=== PATIENT | male | born 1965 | race Caucasian/White ===

== ENCOUNTER 2019-03-04 14:26 | Inpatient (IN) | payer OTHER ==
[~2019-03-04] VITALS: Ht 182.9 cm; Wt 95.3 kg
[2019-03-04 14:29] VITALS: BP 163/103
[2019-03-04 14:52] LABS: ABSOLUTE BASOPHILS 0.1 thou/uL (0.0-0.2); ABSOLUTE EOSINOPHILS 0.2 thou/uL (0.0-0.7); ABSOLUTE LYMPHOCYTES 3.6 thou/uL (0.8-5.3); ABSOLUTE MONOCYTES 0.5 thou/uL (0.0-1.2); ABSOLUTE NEUTROPHILS 3.3 thou/uL (1.6-8.1); BASOPHILS 1.1 %; EOSINOPHILS 2.9 %; HEMATOCRIT 46.4 % (42.0-52.0); HEMOGLOBIN 15.7 gm/dL (14.0-18.0); LYMPHOCYTES 46.3 %; MCHC 33.9 g/dL (28.0-37.0); MCV 91.4 fL (80.0-100.0); MONOCYTES 6.7 %; MPV 7.5 fl. (7.2-11.1); NUCLEATED RBCS 0 /100WBC; PLATELET COUNT* 322 thou/uL (150-400); RBC 5.08 mil/uL (4.50-6.00); RDW-CV 15.6 % (10.5-14.5); WBC 7.7 thou/uL (4.0-11.0)
[2019-03-04 15:00] LABS: APTT 30.3 Seconds (25.0-31.3); PROTIME 9.9 Seconds (9.20-11.50)
[2019-03-04 15:30] LABS: ANION GAP 13 mmol/L (7-16); BUN 11 mg/dL (7-18); CHLORIDE 115 mmol/L (98-107); CO2 18 mmol/L (21-32); CREATININE 0.7 mg/dL (0.6-1.3); GLUCOSE 106 mg/dL (70-99); SODIUM 146 mmol/L (136-145); TROPONIN-I LEVEL <0.06 ng/mL (<0.06)
[2019-03-04 15:33] LABS: ALBUMIN 2.4 g/dL (3.4-5.0); ALKALINE PHOSPHATASE 45 U/L (46-116); CK-MB MASS 1.5 ng/mL (<0.5-3.6); LIPASE 80 U/L (73-393); MAGNESIUM 1.1 mg/dL (1.8-2.4); NT-PRO BRAIN NAT PEPTIDE 1161 pg/mL (<300); SGOT 17 U/L (15-37); SGPT 23 U/L (30-65); TOTAL BILIRUBIN 0.1 mg/dL (<0.1-1.0)
[2019-03-04 15:35] LABS: POTASSIUM 2.6 mmol/L (3.5-5.1)
[2019-03-04 15:36] LABS: CALCIUM 5.6 mg/dL (8.5-10.1)
[2019-03-04 17:46] VITALS: BP 149/110
[2019-03-04 18:35] VITALS: BP 141/96
[2019-03-04 20:00] VITALS: BP 115/67
[2019-03-04 21:30] VITALS: BP 121/62
[2019-03-04 23:15] VITALS: BP 124/63
[2019-03-05 04:00] VITALS: BP 112/74
[2019-03-05 04:59] LABS: HEMATOCRIT 41.8 % (42.0-52.0); HEMOGLOBIN 14.1 gm/dL (14.0-18.0); MCH 30.8 pg (26.0-34.0); MCHC 33.6 g/dL (28.0-37.0); MCV 91.7 fL (80.0-100.0); MPV 7.9 fl. (7.2-11.1); RBC 4.56 mil/uL (4.50-6.00); RDW-CV 15.7 % (10.5-14.5); WBC 6.7 thou/uL (4.0-11.0)
[2019-03-05 05:39] LABS: MAGNESIUM 2.1 mg/dL (1.8-2.4)
[2019-03-05 05:47] LABS: CALCIUM 8.9 mg/dL (8.5-10.1); POTASSIUM 4.6 mmol/L (3.5-5.1)
[2019-03-05 08:00] VITALS: BP 123/79
[2019-03-05 12:00] VITALS: BP 138/78
--- NOTE | 2019-03-05 12:07 | EKG ---
[place] [address] ELECTROCARDIOGRAM REPORT Name: IVANIA KUMAR Room: [address] ADM IN .R.#: [id number] Admission: 03/04/19 Attend Phys: Oh Whitaker MD Discharge: Date of : 69 Report #: [id number] THIS REPORT FOR: //name// [facility] ED Test Date: 2019-03-04 Test Time: 14:30:10 Pat Name: IVANIA KUMAR Department: Room: 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
--- NOTE | 2019-03-05 12:09 | EKG ---
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[facility] : 1965 Requested By: Oh Whitaker Order Number: [id number] Reading MD: Michael Burton Measurements Intervals [place] Rate: 116 P: [place]: QRS: 267 QRSD: 153 T: 19 QT: 344 QTc: 478 Interpretive Statements Atrial flutter with predominant 2:1 AV block Nonspecific IVCD with LAD LVH by voltage Abnormal T, consider ischemia, anterior leads No previous ECG available for comparison Electronically Signed On 03-05-2019 12:09:41 CDT by Michael Burton [email or web address] <ELECTRONICALLY SIGNED> By: Michael Burton MD, [facility] 03/05/19 1209 0841 0841 Michael Burton MD, [facility] /EPI
[2019-03-05 16:00] VITALS: BP 129/85
[2019-03-05 20:05] VITALS: BP 132/69
[2019-03-06] VITALS (12 sets, daily range): BP systolic 101–132; BP diastolic 63–93
[2019-03-06 04:35] LABS: CALCIUM 8.4 mg/dL (8.5-10.1); CREATININE 1.1 mg/dL (0.6-1.3); MAGNESIUM 1.6 mg/dL (1.8-2.4)
--- NOTE | 2019-03-06 08:58 | CON ---
[address] [address] CONSULTATION Name: IVANIA KUMAR Room: [address] IN .R.#: [id number] Admission: 03/04/19 Attend Phys: Oh Whitaker MD Discharge: Date of : 69 Report #: [id number] THIS REPORT FOR: //name// CC: [facility] physician/PCP Oh Whitaker CARDIOLOGY CONSULTATION INDICATION: Atrial flutter with rapid ventricular response rate. HISTORY OF PRESENT ILLNESS: The patient is a very pleasant 53-year-old gentleman with a history of tricuspid arteriosus repair at age 14 with subsequent surgery at age 15. In 2015, he had an episode of atrial flutter. He reports a "heart attack" in 2017 in [place], although those records are not available. He presents with recurrent atrial flutter with rapid ventricular response rate. He is on no medications. PAST MEDICAL HISTORY: 1. Tricuspid valve repair x 2 as outlined above. 2. Hypertension. 3. Paroxysmal atrial flutter. ALLERGIES: None documented. CURRENT MEDICATIONS: None. SOCIAL HISTORY: The patient smokes a pack of cigarettes daily and drinks 2-3 beers daily. FAMILY HISTORY: Noncontributory. REVIEW OF SYSTEMS: On 14-point review of systems, he reports cough productive of clear sputum, palpitations, chest discomfort, dyspnea on exertion, near syncope, questionable blood in stool, blood in urine, seasonal allergies, depression, anxiety and glasses. Otherwise, 14-point review of systems is unremarkable. PHYSICAL EXAMINATION: VITAL SIGNS: Blood pressure 123/79, pulse is irregular and in the 90s to 120s. GENERAL: This is a pleasant, healthy appearing gentleman in no distress. Mood and affect appropriate. HEENT: The patient is wearing glasses. Extraocular muscles intact. Mucous membranes moist. CHEST: Reveals clear lung black[place] without wheezes, rales or rhonchi. CARDIOVASCULAR: Reveals no jugular venous distention or bruit. Irregularly irregular rhythm, slightly tachycardic without gallop or murmur. ABDOMEN: Reveals normal bowel sounds. The abdomen [place] [address] CONSULTATION Name: IVANIA KUMAR Room: [address] IN [facility]#: [id number] Admission: 03/04/19 Attend Phys: Oh Whitaker MD Discharge: Date of : 69 Report #: [id number] EXTREMITIES: Show no significant edema. Peripheral pulses 2+ and easily palpable. SKIN: Dry. LABORATORY DATA: A 12-lead EKG shows atrial flutter with variable conduction. IMPRESSION AND RECOMMENDATIONS: 1. Recurrent paroxysmal atrial flutter. We will start Multaq 400 b.i.d. We will start Eliquis 5 mg b.i.d. We will plan cardioversion in a.m. Echocardiogram will be ordered. 2. Hypertension. Blood pressure appears adequately controlled at this time. We will follow clinically. 3. History of tricuspid valve repair on 2 separate occasions. We will obtain echocardiogram during this hospitalization. 4. Cardiomyopathy- repeat echo at this time. Adjust medicines as tolerated. <ELECTRONICALLY SIGNED> By: Michael Burton MD, FACC 03/06/19 0858 1153 0446Michael Burton MD, FACC /nt
--- NOTE | 2019-03-06 12:34 | 2DMMODE ---
[place] [address] 2 D/M-MODE ECHOCARDIOGRAM Name: IVANIA KUMAR Room: [address] [place] [facility]#: [id number] Admission: 03/04/19 Attend Phys: Oh Whitaker, Discharge: Date of : 69 Date of Service: 03/06/19 1234 Report #: [id number] THIS REPORT FOR: //name// APPROVED REPORT Study performed: 03/06/2019 10:13:45 EXAM: Comprehensive 2D, Doppler, and color-flow Echocardiogram Patient Location: In-Patient Room #: 200 Status: routine BSA: 2.22 HR: 102 bpm BP: 119/65 mmHg Rhythm: Atrial Fibrillation Other Information Study Quality: Good Indications Atrial Fibrillation Tachycardia Chest Pain 2D Dimensions IVSd: 17.30 (7-11mm) LVOT Diam: 24.37 (18-24mm) LVDd: 51.28 mm PWd: 15.23 (7-11mm) Ascending Ao: 36.11 (22-36mm) LVDs: 39.40 (25-40mm) Volumes Left Atrial Volume (Systole) LA ESV Index: 46.60 mL/m2 Aortic Valve AoV Peak Yasir.: 1.11 m/s AO Peak Gr.: 4.89 mmHg LVOT Max P.28 mmHg AO Mean Gr.: 3.08 mmHg LVOT Mean P.38 mmHg LVOT Max V: 1.03 m/s AO V2 VTI: 17.50 cm LVOT Mean V: 0.70 m/s RON (VTI): 4.33 cm2 LVOT V1 VTI: 16.24 cm TDI Medial E' Yasir.: 0.13 m/s Lateral E' Yasir.: 0.14 m/[place] [address] 2 D/M-MODE ECHOCARDIOGRAM Name: IVANIA KUMAR Room: [address] IN [facility]#: [id number] Admission: 03/04/19 Attend Phys: Oh Whitaker, Discharge: Date of : 69 Date of Service: 03/06/19 1234 Report #: [id number] Pulmonary Valve PV Peak Yasir.: 0.91 m/s PV Peak Gr.: 3.34 mmHg Tricuspid Valve RAP Estimate: 5.00 mmHg TR Peak Gr.: 19.79 mmHg RVSP: 24.00 mmHg PA Pressure: 24.00 mmHg Left Ventricle The left ventricle is normal size. There is global hypokinesis of the left ventricle. Moderate concentric left ventricular hypertrophy. Left ventricular systolic function is moderately decreased. LVEF is 35-40%. This study is not technically sufficient to allow evaluation of the LV diastolic function due to atrial fibrillation. Right Ventricle The right ventricle is normal size. The right ventricular systolic function is normal. Atria Left atrium is moderately dilated. Right atrium is dilated. Aortic Valve The aortic valve is normal in structure. No aortic regurgitation is present. There is no aortic valvular stenosis. Mitral Valve The mitral valve is normal in structure. Trace mitral regurgitation. No evidence of mitral valve stenosis. Tricuspid Valve The tricuspid valve is normal in structure. Mild tricuspid regurgitation. No pulmonary hypertension. Pulmonic Valve The pulmonary valve is normal in structure. Trace pulmonic regurgitation. Great Vessels The aortic root is normal in size. IVC is normal in size and collapses >50% with inspiration. Pericardium There is no [place] [address] 2 D/M-MODE ECHOCARDIOGRAM Name: IVANIA KUMAR Room: [address] IN [facility].#: [id number] Admission: 03/04/19 Attend Phys: Oh Whitaker, Discharge: Date of : 69 Date of Service: 03/06/19 1234 Report #: [id number] <Conclusion> The left ventricle is normal size. Moderate concentric left ventricular hypertrophy. The left ventricle is normal size. Moderate concentric left ventricular hypertrophy. Left ventricular systolic function is moderately decreased. LVEF is 35-40%. This study is not technically sufficient to allow evaluation of the LV diastolic function due to atrial fibrillation. Left atrium is moderately dilated. Right atrium is dilated. Trace mitral regurgitation. Mild tricuspid regurgitation. No pulmonary hypertension. <ELECTRONICALLY SIGNED> By: Michael Burton MD, FACC 03/06/19 1234 1234 1234 Michael Burton MD, FACC /INF
--- NOTE | 2019-03-06 13:05 | EKG ---
[place] [address] ELECTROCARDIOGRAM REPORT Name: IVANIA KUMAR Room: [address] ADM IN M.R.#: [id number] Admission: 03/04/19 Attend Phys: Oh Whitaker MD Discharge: Date of : 69 Report #: [id number] THIS REPORT FOR: //name// 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
[2019-03-07] VITALS: BP 133/89
[2019-03-07 04:00] VITALS: BP 128/90
[2019-03-07 08:00] VITALS: BP 133/87
[2019-03-07] MEDS ORDERED: CARVEDILOL3.125 MG PO (12:47)
[2019-03-07] MEDS ORDERED: ELIQUIS5 MG PO (12:48)
[2019-03-07] MEDS ORDERED: MULTAQ 400 MG400 MG PO (12:49)
[2019-03-07] MEDS ORDERED: ENTRESTO 24 MG1 EACH PO (12:51)
[2019-03-07 12:55] VITALS: BP 135/85
[2019-03-07 13:08] VITALS: BP 135/85
== END 2019-03-07 14:10 | disposition home or self-care (01) | DRG 308 ==
LOC: M.ERS 14:26 → M.TBA-ER 15:55 → M.2W 15:55
PROVIDERS: Family Medicine; ADMIT Internal Medicine
PROC: 5A2204Z Restoration of Cardiac Rhythm, Single (ICD-10-PCS; principal; 2019-03-06)
DX: I48.91 Unspecified atrial fibrillation (principal); J96.91 Respiratory failure, unspecified with hypoxia; E44.1 Mild protein-calorie malnutrition; I48.92 Unspecified atrial flutter; I47.1 Supraventricular tachycardia; I42.9 Cardiomyopathy, unspecified; I10 Essential (primary) hypertension; I25.2 Old myocardial infarction; F17.210 Nicotine dependence, cigarettes, uncomplicated; I25.10 Atherosclerotic heart disease of native coronary artery without angina pectoris; I45.4 Nonspecific intraventricular block; E83.51 Hypocalcemia; E87.6 Hypokalemia; F10.10 Alcohol abuse, uncomplicated; Z68.28 Body mass index [BMI] 28.0-28.9, adult

== ENCOUNTER 2019-07-25 16:19 | Emergency (ER) | payer OTHER ==
[~2019-07-25] VITALS: Ht 190.5 cm; Wt 104.3 kg
[~2019-07-25 16:19] MED LIST: CARVEDILOL3.125 MG PO; ELIQUIS5 MG PO; ENTRESTO 24 MG1 EACH PO; MULTAQ 400 MG400 MG PO
[2019-07-25 17:27] LABS: ABSOLUTE EOSINOPHILS 0.2 thou/uL (0.0-0.7); ABSOLUTE LYMPHOCYTES 2.4 thou/uL (0.8-5.3); ABSOLUTE MONOCYTES 0.5 thou/uL (0.0-1.2); ABSOLUTE NEUTROPHILS 2.6 thou/uL (1.6-8.1); BASOPHILS 0.8 %; EOSINOPHILS 4.2 %; HEMATOCRIT 42.5 % (42.0-52.0); HEMOGLOBIN 14.1 gm/dL (14.0-18.0); LYMPHOCYTES 41.3 %; MCH 31.6 pg (26.0-34.0); MCHC 33.3 g/dL (28.0-37.0); MONOCYTES 8.5 %; MPV 7.3 fl. (7.2-11.1); NUCLEATED RBCS 0 /100WBC; PLATELET COUNT* 309 thou/uL (150-400); POLYS 45.2 %; RBC 4.47 mil/uL (4.50-6.00); RDW-CV 15.6 % (10.5-14.5); WBC 5.7 thou/uL (4.0-11.0)
[2019-07-25 17:51] LABS: ANION GAP 11 mmol/L (7-16); BUN 15 mg/dL (7-18); CALCIUM 8.2 mg/dL (8.5-10.1); CHLORIDE 107 mmol/L (98-107); CO2 24 mmol/L (21-32); CREATININE 0.9 mg/dL (0.6-1.3); GLUCOSE 100 mg/dL (70-99); POTASSIUM 3.9 mmol/L (3.5-5.1); SODIUM 142 mmol/L (136-145)
[2019-07-25 18:01] LABS: ALBUMIN 3.6 g/dL (3.4-5.0); ALKALINE PHOSPHATASE 81 U/L (46-116); LIPASE 110 U/L (73-393); NT-PRO BRAIN NAT PEPTIDE 85 pg/mL (<300); SGPT 29 U/L (30-65); TOTAL BILIRUBIN 0.2 mg/dL (<0.1-1.0); TROPONIN-I LEVEL <0.06 ng/mL (<0.06)
[2019-07-25 18:11] VITALS: BP 158/95
[2019-07-25 18:19] LABS: SGOT 24 U/L (15-37)
--- NOTE | 2019-07-27 17:52 | EKG ---
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1965 Requested By: Miky Brewer Order Number: [id number] MD: Nick Sarkar Measurements Intervals [place] Rate: 95 P: -47 AL: 203 QRS: -77 QRSD: 162 T: 25 QT: 408 QTc: 513 Interpretive Statements Sinus or ectopic atrial rhythm Borderline prolonged AL interval 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
== END 2019-07-25 18:13 ==
LOC: M.ERS 16:19
PROVIDERS: Emergency Medicine
DX: R07.89 Other chest pain (principal); I25.10 Atherosclerotic heart disease of native coronary artery without angina pectoris; F17.210 Nicotine dependence, cigarettes, uncomplicated

== ENCOUNTER 2019-07-29 14:30 | Emergency (ER) | payer OTHER ==
[~2019-07-29] VITALS: Ht 190.5 cm; Wt 106.6 kg
[2019-07-29 15:10] LABS: ABSOLUTE BASOPHILS 0.1 thou/uL (0.0-0.2); ABSOLUTE EOSINOPHILS 0.1 thou/uL (0.0-0.7); ABSOLUTE LYMPHOCYTES 1.9 thou/uL (0.8-5.3); ABSOLUTE MONOCYTES 0.7 thou/uL (0.0-1.2); ABSOLUTE NEUTROPHILS 5.2 thou/uL (1.6-8.1); BASOPHILS 0.7 %; EOSINOPHILS 0.7 %; HEMATOCRIT 41.3 % (42.0-52.0); HEMOGLOBIN 14.1 gm/dL (14.0-18.0); LYMPHOCYTES 23.8 %; MCH 31.6 pg (26.0-34.0); MCHC 34.1 g/dL (28.0-37.0); MCV 92.8 fL (80.0-100.0); MONOCYTES 8.4 %; MPV 7.4 fl. (7.2-11.1); NUCLEATED RBCS 0 /100WBC; PLATELET COUNT* 301 thou/uL (150-400); POLYS 66.4 %; RBC 4.45 mil/uL (4.50-6.00); RDW-CV 14.8 % (10.5-14.5); WBC 7.8 thou/uL (4.0-11.0)
[2019-07-29 15:18] LABS: ANION GAP 11 mmol/L (7-16); BUN 26 mg/dL (7-18); CALCIUM 9.4 mg/dL (8.5-10.1); CHLORIDE 102 mmol/L (98-107); CO2 28 mmol/L (21-32); CREATININE 2.2 mg/dL (0.6-1.3); GLUCOSE 119 mg/dL (70-99); POTASSIUM 3.6 mmol/L (3.5-5.1); SODIUM 141 mmol/L (136-145)
[2019-07-29 15:30] LABS: ALBUMIN 4.6 g/dL (3.4-5.0); ALKALINE PHOSPHATASE 74 U/L (46-116); SGOT 31 U/L (15-37); SGPT 36 U/L (30-65); TOTAL BILIRUBIN 0.4 mg/dL (<0.1-1.0); TROPONIN-I LEVEL <0.06 ng/mL (<0.06)
[2019-07-29 17:17] VITALS: BP 125/80
--- NOTE | 2019-07-30 10:47 | EKG ---
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1965 Requested By: Saúl Rivas Order Number: [id number] MD: Harvey Gallardo Measurements Intervals [place] Rate: 81 P: -37 FL: 212 QRS: -68 QRSD: 171 T: 6 QT: 434 QTc: 504 Interpretive Statements Sinus rhythm Prolonged [place] interval RBBB and LAFB Left ventricular hypertrophy Artifact in lead(s) I,II,aVR,V3 Compared to ECG 07/25/2019 16:25:54 Ectopic atrial rhythm no longer present Electronically Signed On 07-30-2019 10:47:35 CDT by Harvey Gallardo [email or web address] <ELECTRONICALLY SIGNED> By: Harvey Gallardo MD, [facility] 07/30/19 1047 1447 1447 Harvey Gallardo MD, [facility] /EPI
== END 2019-07-29 17:18 | disposition home or self-care (01) ==
LOC: M.ERS 14:30
PROVIDERS: Nurse Practitioner Family
DX: T67.8XXA Other effects of heat and light, initial encounter (principal); R42 Dizziness and giddiness; F17.210 Nicotine dependence, cigarettes, uncomplicated; I25.10 Atherosclerotic heart disease of native coronary artery without angina pectoris